=== PATIENT | female | born 1955 | race Caucasian/White ===

== ENCOUNTER 2017-05-16 11:42 | Inpatient (IN) | payer BC ==
[2017-05-16] MEDS: SODIUM CHLORIDE 0.9% 1L BAG IV* (13:16)
[2017-05-16 13:38] LABS: ADD MAN DIFF? NO
[2017-05-16 13:51] LABS: BASOPHILS % 0.2 % (0.0-2.0); HEMATOCRIT 43.7 % (37.0-47.0); HEMOGLOBIN 14.7 g/dl (12.0-16.0); LYMPHOCYTES # 1.6 10^3/ul (0.8-2.9); LYMPHOCYTES % 31.9 % (15.0-51.0); MEAN CORPUSCULAR HEMOGLOBIN 29.4 pg (29.0-33.0); MEAN CORPUSCULAR HGB CONC 33.6 g/dl (32.0-37.0); MEAN CORPUSCULAR VOLUME 87.4 fl (82.0-101.0); MONOCYTE # 0.4 10^3/ul (0.3-0.9); MONOCYTES % 7.5 % (0.0-11.0); PLATELET COUNT 148 10^3/UL (140-415); RED CELL DISTRIBUTION WIDTH 11.9 % (11.5-14.5)
[2017-05-16 13:59] LABS: INR 0.87; PROTIME 11.9 Sec (11.9-14.9); PT RATIO 0.9
[2017-05-16 14:03] LABS: ALANINE AMINOTRANSFERASE 37 IU/L (13-69); ALBUMIN 4.1 g/dl (3.3-4.9); ALBUMIN/GLOBULIN RATIO 1.24; ALKALINE PHOSPHATASE 100 IU/L (42-121); ANION GAP 17 (8-16); ASPARTATE AMINO TRANSFERASE 31 IU/L (15-46); BILIRUBIN,INDIRECT 0.2 mg/dl (0-1.1); BILIRUBIN,TOTAL 0.2 mg/dl (0.2-1.3); BLOOD UREA NITROGEN 13 mg/dl (7-20); CALCIUM 8.9 mg/dl (8.4-10.2); CARBON DIOXIDE 28 mmol/L (21-31); CHLORIDE 98 mmol/L (97-110); CREATININE 0.67 mg/dl (0.44-1.00); GLUCOSE 334 mg/dl (70-220); POTASSIUM 4.6 mmol/L (3.5-5.1); SODIUM 138 mmol/L (135-144); TOTAL PROTEIN 7.4 g/dl (6.1-8.1)
[2017-05-16 14:17] LABS: TROPONIN-I < 0.012 ng/ml (0.00-0.12)
[2017-05-16] MEDS: KETOROLAC 15 MG INJ IV (14:26)
[2017-05-16 14:39] LABS: LACTIC ACID 1.4 mmol/L (0.5-2.0)
[2017-05-16] MEDS ORDERED: ONDANSETRON 4 MG INJ IV ×2 (16:00→19:30)
[2017-05-16] MEDS ORDERED: ACETAMINOPHEN 325 MG TAB PO (16:00)
[2017-05-16 16:01] LABS: ADD UMIC YES; UR ASCORBIC ACID 40 mg/dL (NEGATIVE); UR BACTERIA FEW /HPF (NONE SEEN); UR BILIRUBIN (Dip) NEGATIVE (NEGATIVE); UR BLOOD (Dip) NEGATIVE (NEGATIVE); UR CLARITY SLIGHTLY CLOUDY (CLEAR); UR COLOR YELLOW (YELLOW); UR GLUCOSE (Dip) 3+ mg/dL (NEGATIVE); UR KETONES (Dip) 2+ mg/dL (NEGATIVE); UR LEUKOCYTE ESTERASE (Dip) NEGATIVE Leu/ul (NEGATIVE); UR MUCUS FEW /HPF (NONE SEEN); UR NITRITE (Dip) NEGATIVE (NEGATIVE); UR RBC 2 /HPF (0-5); UR SPECIFIC GRAVITY (Dip) 1.029 (1.003-1.030); UR SQUAMOUS EPITHELIAL CELL FEW /HPF (FEW); UR TOTAL PROTEIN (Dip) 1+ mg/dl (NEGATIVE); UR UROBILINOGEN (Dip) NEGATIVE (NEGATIVE); UR WBC 4 /HPF (0-5)
[2017-05-16] MEDS: OSELTAMIVIR 75 MG CAP PO (16:03)
[2017-05-16] MEDS ORDERED: NITROGLYCERIN (SL) 0.4 MG TAB SL (17:30)
[2017-05-16] MEDS: SOD CHLORIDE 0.9% 1,000 ML IV (19:03)
[2017-05-16] MEDS ORDERED: DOCUSATE SODIUM 100 MG CAP PO (19:30)
[2017-05-16] MEDS ORDERED: NACL 0.9% 3 ML SYG IV (19:30)
[2017-05-16] MEDS ORDERED: morphine 2 MG INJ IV (19:30)
[2017-05-16] MEDS ORDERED: HYDROCODONE/APAP (5/325) TAB PO (19:30)
[2017-05-16] MEDS ORDERED: MAGNESIUM HYDROXIDE 30ML CUP PO (19:30)
[2017-05-16 19:33] LABS: TROPONIN-I < 0.012 ng/ml (0.00-0.12)
[2017-05-16] MEDS ORDERED: CEFTRIAXONE 1 GM/50 ML (PMX) 50 ML IVPB (19:54)
[2017-05-16] MEDS ORDERED: DEXTROSE 50% 50 ML SYRINGE IV ×2 (20:30)
[2017-05-16] MEDS ORDERED: GLUCOSE GEL 15 GRAM TUBE BUCCAL (20:30)
[2017-05-16] MEDS ORDERED: GLUCAGON 1 MG INJ IM (20:30)
[2017-05-16] MEDS ORDERED: GLUCOSE GEL 15 GRAM TUBE PO ×2 (20:30)
[2017-05-16] MEDS ORDERED: GLIMEPIRIDE 2 MG TAB PO (21:00)
[2017-05-16] MEDS: CEFTRIAXONE 1 GM/50 ML (PMX) 50 ML IVPB (21:14)
[2017-05-16] MEDS: LISINOPRIL 10 MG TAB PO (23:32)
[2017-05-16] MEDS: FAMOTIDINE 20 MG INJ IV (23:32)
[2017-05-16] MEDS: INSULIN ASPART [NOVOLOG] 3 ML PEN SC (23:42)
[2017-05-17] MEDS: OSELTAMIVIR 75 MG CAP PO ×3 (01:00→21:17)
[2017-05-17 01:57] LABS: TROPONIN-I < 0.012 ng/ml (0.00-0.12)
[2017-05-17] MEDS: ACCU-CHEK XX (02:07)
[2017-05-17 07:22] LABS: ANION GAP 15 (8-16); BLOOD UREA NITROGEN 11 mg/dl (7-20); CARBON DIOXIDE 25 mmol/L (21-31); CHLORIDE 104 mmol/L (97-110); CREATININE 0.54 mg/dl (0.44-1.00); GLUCOSE 231 mg/dl (70-220); MAGNESIUM 1.5 mg/dl (1.7-2.5); PHOSPHORUS 2.4 mg/dl (2.5-4.9); POTASSIUM 4.1 mmol/L (3.5-5.1); SODIUM 140 mmol/L (135-144)
[2017-05-17] MEDS: FAMOTIDINE 20 MG INJ IV ×2 (08:03→21:17)
[2017-05-17] MEDS: ASPIRIN 81 MG TAB PO (08:03)
[2017-05-17] MEDS: AMLODIPINE 10 MG TAB PO (08:04)
[2017-05-17] MEDS: LISINOPRIL 10 MG TAB PO ×2 (08:05→21:17)
[2017-05-17] MEDS: ENOXAPARIN 40 MG/0.4 ML SYG SC (08:06)
[2017-05-17] MEDS: INSULIN ASPART [NOVOLOG] 3 ML PEN SC ×5 (08:10→21:20)
[2017-05-17 08:16] LABS: HEMOGLOBIN A1C 10.8 % (0-5.9)
[2017-05-17] MEDS: SOD CHLORIDE 0.9% 1,000 ML IV (11:31)
[2017-05-17] MEDS: ACETAMINOPHEN 325 MG TAB PO (16:33)
[2017-05-17] MEDS: MAGNESIUM SULFATE 2 GM/50 ML 50 ML IVPB (16:33)
[2017-05-17] MEDS: INSULIN GLARGINE [LANtus] 3 ML PEN SC (21:18)
[2017-05-17] MEDS: CEFTRIAXONE 1 GM/50 ML (PMX) 50 ML IVPB (23:00)
[2017-05-18] MEDS ORDERED: CEPASTAT LOZENGE MT (01:30)
[2017-05-18] MEDS: GUAIFENESIN/DM 5ML CUP PO ×2 (01:49→21:37)
[2017-05-18] MEDS: SOD CHLORIDE 0.9% 1,000 ML IV ×2 (01:51→17:09)
[2017-05-18] MEDS: ACCU-CHEK XX (02:00)
[2017-05-18] MEDS ORDERED: ACCU-CHEK XX (02:00)
[2017-05-18 08:00] LABS: ADD MAN DIFF? NO
[2017-05-18 08:05] LABS: WHITE BLOOD COUNT 4.5 10^3/ul (4.8-10.8)
[2017-05-18 08:05] LABS: HEMATOCRIT 38.3 % (37.0-47.0); HEMOGLOBIN 12.9 g/dl (12.0-16.0); LYMPHOCYTES # 1.8 10^3/ul (0.8-2.9); LYMPHOCYTES % 41.1 % (15.0-51.0); MEAN CORPUSCULAR HEMOGLOBIN 29.7 pg (29.0-33.0); MEAN CORPUSCULAR HGB CONC 33.7 g/dl (32.0-37.0); MEAN PLATELET VOLUME 11.1 fl (7.4-10.4); MONOCYTE # 0.3 10^3/ul (0.3-0.9); MONOCYTES % 6.5 % (0.0-11.0); NEUTROPHIL # 2.3 10^3/ul (1.6-7.5); NEUTROPHILS % 52.2 % (39.0-77.0); PLATELET COUNT 130 10^3/UL (140-415); RED BLOOD COUNT 4.35 10^6/ul (4.20-5.40); RED CELL DISTRIBUTION WIDTH 11.9 % (11.5-14.5)
[2017-05-18 08:30] LABS: ANION GAP 14 (8-16); BLOOD UREA NITROGEN 11 mg/dl (7-20); CALCIUM 8.5 mg/dl (8.4-10.2); CARBON DIOXIDE 26 mmol/L (21-31); CHLORIDE 105 mmol/L (97-110); CREATININE 0.52 mg/dl (0.44-1.00); GLUCOSE 232 mg/dl (70-220); SODIUM 141 mmol/L (135-144)
[2017-05-18 08:31] LABS: CHOL/HDL RATIO 5.8 RATIO; HDL CHOLESTEROL 28 mg/dl (35-98); LDL CHOLESTEROL,CALCULATED 109 mg/dl; TRIGLYCERIDES 138 mg/dl (0-149)
[2017-05-18 08:31] LABS: CHOLESTEROL 165 mg/dl (100-200)
[2017-05-18 08:37] LABS: POSITIVE DIFF @See below
[2017-05-18] MEDS: AMLODIPINE 10 MG TAB PO (08:45)
[2017-05-18] MEDS: LISINOPRIL 10 MG TAB PO ×2 (08:45→21:26)
[2017-05-18] MEDS: OSELTAMIVIR 75 MG CAP PO ×2 (08:45→21:26)
[2017-05-18] MEDS: FAMOTIDINE 20 MG INJ IV ×2 (08:45→21:26)
[2017-05-18] MEDS: ASPIRIN 81 MG TAB PO (08:46)
[2017-05-18] MEDS: INSULIN ASPART [NOVOLOG] 3 ML PEN SC ×8 (09:03→21:00)
[2017-05-18] MEDS: ENOXAPARIN 40 MG/0.4 ML SYG SC (09:03)
[2017-05-18] MEDS: CEFTRIAXONE 1 GM/50 ML (PMX) 50 ML IVPB (21:26)
[2017-05-18] MEDS: INSULIN GLARGINE [LANtus] 3 ML PEN SC (21:37)
[2017-05-19] MEDS: ACCU-CHEK XX ×2 (02:00)
[2017-05-19] MEDS: GUAIFENESIN/DM 5ML CUP PO ×4 (05:39→21:05)
[2017-05-19] MEDS: LISINOPRIL 10 MG TAB PO ×2 (08:21→20:52)
[2017-05-19] MEDS: OSELTAMIVIR 75 MG CAP PO ×2 (08:21→20:52)
[2017-05-19] MEDS: FAMOTIDINE 20 MG INJ IV ×2 (08:21→20:52)
[2017-05-19] MEDS: ASPIRIN 81 MG TAB PO (08:21)
[2017-05-19] MEDS: AMLODIPINE 10 MG TAB PO (08:21)
[2017-05-19] MEDS: METOPROLOL (XL) 25 MG TAB PO (08:21)
[2017-05-19] MEDS: INFLUENZA VIRUS VACCINE 0.5 ML (DISPENSING) IM* (08:22)
[2017-05-19] MEDS: ENOXAPARIN 40 MG/0.4 ML SYG SC (08:23)
[2017-05-19] MEDS: INSULIN ASPART [NOVOLOG] 3 ML PEN SC ×7 (09:37→21:01)
[2017-05-19] MEDS: CEFTRIAXONE 1 GM/50 ML (PMX) 50 ML IVPB (20:53)
[2017-05-19] MEDS: INSULIN GLARGINE [LANtus] 3 ML PEN SC (20:57)
[2017-05-20] MEDS: ACCU-CHEK XX ×2 (02:00→02:15)
[2017-05-20] MEDS: INSULIN ASPART [NOVOLOG] 3 ML PEN SC ×4 (08:00→11:56)
[2017-05-20] MEDS: AMLODIPINE 10 MG TAB PO (08:29)
[2017-05-20] MEDS: ASPIRIN 81 MG TAB PO (08:29)
[2017-05-20] MEDS: OSELTAMIVIR 75 MG CAP PO ×2 (08:30→13:28)
[2017-05-20] MEDS: LISINOPRIL 10 MG TAB PO (08:30)
[2017-05-20] MEDS: METOPROLOL (XL) 25 MG TAB PO (08:30)
[2017-05-20] MEDS: FAMOTIDINE 20 MG INJ IV (08:31)
[2017-05-20] MEDS: ENOXAPARIN 40 MG/0.4 ML SYG SC (08:31)
[2017-05-20] MEDS: GUAIFENESIN/DM 5ML CUP PO (08:35)
[2017-05-20] MEDS: ACETAMINOPHEN 325 MG TAB PO (11:50)
== END 2017-05-20 14:38 | disposition home or self-care (01) | DRG 194 ==
LOC: MS4 15:44 → E/R 11:42
DX: J10.1 Influenza due to other identified influenza virus with other respiratory manifestations (principal); N39.0 Urinary tract infection, site not specified; E11.65 Type 2 diabetes mellitus with hyperglycemia; I10 Essential (primary) hypertension; E78.5 Hyperlipidemia, unspecified; R94.31 Abnormal electrocardiogram [ECG] [EKG]; Z79.84 Long term (current) use of oral hypoglycemic drugs; Z79.82 Long term (current) use of aspirin
CPT/HCPCS: 36415; 71045; 80048; 80053; 80061; 81001; 82962; 83036; 83605; 83735; 84100; 84484; 85025; 85610; 85730; 87040; 87086; 87400; 90686; 93005; 93306; 96372; 96374; 96375; 99291-25